=== PATIENT | female | born 1935 | race Hispanic/Latino ===

== ENCOUNTER 2018-10-28 18:25 | Inpatient (IN) | payer MEDICARE | END 2018-10-31 13:12 | disposition home or self-care (01) | LOC: EDH 18:25 → EDHIP 18:26 → 2DH 21:36 | DX: J44.1 Chronic obstructive pulmonary disease with (acute) exacerbation (principal); J18.1 Lobar pneumonia, unspecified organism ==

== ENCOUNTER 2018-11-06 12:54 | Observation (INO) | payer MEDICARE ==
[~2018-11-06] VITALS: Ht 149.9 cm; Wt 64.8 kg
[~2018-11-06 12:54] MED LIST: HYDR25TA PO; MEMA10TA11 PO; MVIT PO; NAPR500T6 PO; NIFE30TA91 PO
[2018-11-06] MEDS ORDERED: SODIUM CHLORIDE 0.9% 1000ML 1,000 ML IV ONE (13:26)
[2018-11-06] MEDS: 1/2 NORMAL SALINE 1,000 ML IV SCH (13:30)
[2018-11-06] MEDS ORDERED: ALBUTEROL SULFATE 0.083% 2.5 MG/3 ML INH IH PRN (13:30)
[2018-11-06] MEDS ORDERED: IPRATROPIUM/ALBUTEROL SULFATE 3 ML SOLUTION IH ONE (13:31)
[2018-11-06] MEDS: IPRATROPIUM/ALBUTEROL SULFATE 3 ML SOLUTION IH SCH ×2 (13:34→21:42)
[2018-11-06] MEDS ORDERED: 1/2 NORMAL SALINE 1,000 ML IV ONE (13:35)
[2018-11-06] MEDS ORDERED: FLUCONAZOLE 200 MG/NS 100 ML 100 ML IV SCH (14:00)
[2018-11-06 14:06] VITALS: BP 129/59
[2018-11-06 14:15] LABS: HEMATOCRIT 38.5 % (36-48); MEAN CORPUSCULAR HEMOGLOBIN 30.9 pg (27.0-33.0); MEAN CORPUSCULAR HGB CONC 33.3 g/dL (32.0-36.0); MEAN CORPUSCULAR VOLUME 92.9 fL (79-99); PLATELET COUNT (AUTO) 302 K/uL (130-400); RED BLOOD CELL COUNT(AUTO) 4.15 MIL/uL (4.00-5.50); RED CELL DISTRIBUTION WIDTH 14.2 % (11.0-15.5); WHITE BLOOD COUNT (AUTO) 16.6 K/uL (4.8-10.8)
[2018-11-06 14:35] LABS: BILIRUBIN,DIRECT 0.1 mg/dL (0.0-0.3); BILIRUBIN,TOTAL 0.3 mg/dL (0.2-1.0); CREATININE 1.6 mg/dL (0.5-1.5); POTASSIUM 4.1 mmol/L (3.5-5.1); TOTAL PROTEIN, SERUM 7.9 g/dL (6.0-8.3)
--- NOTE | 2018-11-06 15:00 | NUR ---
NEW ADMISSION FORM FAX TO DR LO OFFICE FOR GI CONSULT AND DR ROLLINS IN TO SEE PATIENT AND SAID NO ANTIBIOTICS AT THIS TIME .
[2018-11-06 16:00] VITALS: BP 137/62
[2018-11-06] MEDS: CLOTRIMAZOLE 10 MG TROCHE MM SCH ×3 (18:23→23:15)
[2018-11-06 19:15] VITALS: BP 133/66
[2018-11-06 23:45] VITALS: BP 129/62
[2018-11-07] VITALS (16 sets, daily range): BP systolic 113–155; BP diastolic 43–84
[2018-11-07] MEDS: 1/2 NORMAL SALINE 1,000 ML IV SCH (03:13)
[2018-11-07 05:22] LABS: MEAN CORPUSCULAR HEMOGLOBIN 31.4 pg (27.0-33.0); MEAN CORPUSCULAR HGB CONC 33.6 g/dL (32.0-36.0); MEAN CORPUSCULAR VOLUME 93.3 fL (79-99); PLATELET COUNT (AUTO) 263 K/uL (130-400); RED BLOOD CELL COUNT(AUTO) 3.97 MIL/uL (4.00-5.50); RED CELL DISTRIBUTION WIDTH 14.4 % (11.0-15.5); WHITE BLOOD COUNT (AUTO) 13.3 K/uL (4.8-10.8)
[2018-11-07 05:27] LABS: INR 0.94 (0.85-1.15); PARTIAL THROMBOPLASTIN TIME 23.6 SEC (26.3-35.5); PROTHROMBIN TIME 9.9 SEC (9.6-11.6)
[2018-11-07 05:42] LABS: ALBUMIN 3.5 g/dL (3.5-5.0); BILIRUBIN,DIRECT 0.1 mg/dL (0.0-0.3); BILIRUBIN,TOTAL 0.4 mg/dL (0.2-1.0); CREATININE 1.2 mg/dL (0.5-1.5); POTASSIUM 3.9 mmol/L (3.5-5.1); TOTAL PROTEIN, SERUM 7.1 g/dL (6.0-8.3)
[2018-11-07] MEDS: IPRATROPIUM/ALBUTEROL SULFATE 3 ML SOLUTION IH SCH (06:27)
--- NOTE | 2018-11-07 08:00 | NUR ---
AM SHIFT ASSESSMENT, PENDING EGD TODAY AFTER LUNCH AND OK TO HAVE BKFT THIS AM.
[2018-11-07] MEDS ORDERED: NIFEDIPINE ER 30 MG TAB PO SCH (09:00)
--- NOTE | 2018-11-07 10:43 | NUR ---
CHART CHECK. Pt IS AN 83 YEAR OLD FEMALE ADMITTED TO THIS FACILITY SECONDARY TO GLADIS ESOPHAGITIS, HYPERTENSION, COPD, STOMATITIS, IMPAIRED FASTING GLUCOSE. Pt HAS A PAST MEDICAL HISTORY SIGNIFICANT FOR COPD, HYPERTENSION, DYSLIPIDEMIA, HYPERGLYCEMIA, GLADIS, ANEMIA, CHRONIC KIDNEY DISEASE STAGE IV, HYPERLIPIDEMIA. Pt WITH COMPLAINS OF DYSPHAGIA DESCRIBED FOOD STOPPING MID CHEST. Pt CURRENTLY NPO SECONDARY TO SCHEDULED FOR EGD. DYSPHAGIA EVAL RECOMMENDED IF Pt CONTINUES TO HAVE DIFFICULTY SWALLOWING AND HAS BEEN CLEARED FOR P.O. BY GI. Addendum: 11/07/18 at 1052 by ZENAIDA LOUIE, SPT ST Amended: Links added.
--- NOTE | 2018-11-07 12:20 | NUR ---
TO GI LAB NOW.
[2018-11-07] MEDS ORDERED: PROPOFOL 10 MG/ML 20ML VIAL IV ONE ×2 (13:30)
--- NOTE | 2018-11-07 14:00 | NUR ---
RECEIVED REPORT FROM RR. PT. NOW BACK TO ROOM. AWAKE AND ASST. TO BR FOR A VOID. LIQUID DIET ORDERED.
--- NOTE | 2018-11-07 15:30 | NUR ---
DC ORDERS ENTERED BY DR. LORENZO.
[2018-11-07] MEDS ORDERED: PANT40TA25 PO (17:28)
--- NOTE | 2018-11-07 17:50 | NUR ---
DISCHARGED NOW USING TEACH BACK. RX. FOR PROTONIX 40MG. CALLED IN TO [facility] IN [place], FOLLOW UP APPT WITH DR. LORENZO AND DR. LO DONE. INST. TO FOLLOW CLEAR LIQ DIET THE REST OF TODAY AND START ON SOFT FOODS IN AM.
== END 2018-11-07 18:00 | disposition home or self-care (01) ==
LOC: EDH 12:54 → EDHIP 13:01 → 3CH 13:54
PROVIDERS: ADMIT Internal Medicine; ATTEND Internal Medicine
DX: K12.1 Other forms of stomatitis (principal); B37.0 Candidal stomatitis; B37.81 Candidal esophagitis; D64.9 Anemia, unspecified; E78.5 Hyperlipidemia, unspecified; I12.9 Hypertensive chronic kidney disease with stage 1 through stage 4 chronic kidney disease, or unspecified chronic kidney disease; N18.4 Chronic kidney disease, stage 4 (severe); J18.9 Pneumonia, unspecified organism; K21.0 Gastro-esophageal reflux disease with esophagitis; J44.0 Chronic obstructive pulmonary disease with (acute) lower respiratory infection; J44.1 Chronic obstructive pulmonary disease with (acute) exacerbation; K29.00 Acute gastritis without bleeding; K22.2 Esophageal obstruction; R13.14 Dysphagia, pharyngoesophageal phase; T38.0X5A Adverse effect of glucocorticoids and synthetic analogues, initial encounter; Z87.01 Personal history of pneumonia (recurrent); Y92.89 Other specified places as the place of occurrence of the external cause; Z79.899 Other long term (current) drug therapy
CPT/HCPCS: 36415 ×2; 43239; 80048 ×2; 80076 ×2; 85027 ×2; 85610; 85730; 86677; 94640 ×3; 94664; 96365; G0378 ×29; J1450; J2704 ×2; J7030

== ENCOUNTER 2018-11-12 13:16 | Emergency (ER) | payer MEDICARE ==
[~2018-11-12 13:16] MED LIST changes: +PANT40TA25 PO
[2018-11-12 14:03] LABS: BASOPHILS % (AUTO) 0.4 % (0.0-5.0); EOSINOPHILS % (AUTO) 0.3 % (0.0-8.0); HEMATOCRIT 38.6 % (36-48); LYMPHOCYTES % (AUTO) 19.1 % (21.0-51.0); MEAN CORPUSCULAR HEMOGLOBIN 30.9 pg (27.0-33.0); MEAN CORPUSCULAR HGB CONC 32.9 g/dL (32.0-36.0); MEAN CORPUSCULAR VOLUME 94.1 fL (79-99); MONOCYTES % (AUTO) 6.7 % (3.0-13.0); NEUTROPHILS % (AUTO) 73.5 % (40.0-77.0); NUCLEATED RED BLOOD CELLS 0.1 % (0.0-0.19); PLATELET COUNT (AUTO) 230 K/uL (130-400); RED BLOOD CELL COUNT(AUTO) 4.11 MIL/uL (4.00-5.50); RED CELL DISTRIBUTION WIDTH 14.6 % (11.0-15.5); WHITE BLOOD COUNT (AUTO) 13.1 K/uL (4.8-10.8)
[2018-11-12 14:11] LABS: APPEARANCE,URINE Clear (CLEAR); BILIRUBIN,URINE Negative (NEGATIVE); COLOR,URINE Yellow (YELLOW); GLUCOSE, URINE (UA) Negative (NEGATIVE); KETONES,URINE Trace mg/dL (NEGATIVE); LEUKOCYTE ESTERASE ,URINE Trace (NEGATIVE); NITRATE,URINE Negative (NEGATIVE); OCCULT BLOOD,URINE Negative (NEGATIVE); PH,URINE 6.5 (5.0-8.0); PROTEIN,URINE Trace mg/dL (NEGATIVE)
[2018-11-12 14:17] LABS: CREATININE 1.6 mg/dL (0.5-1.5); POTASSIUM 3.7 mmol/L (3.5-5.1)
[2018-11-12 14:21] LABS: ALBUMIN 3.9 g/dL (3.5-5.0); BILIRUBIN,TOTAL 0.5 mg/dL (0.2-1.0); INR 0.89 (0.85-1.15); PARTIAL THROMBOPLASTIN TIME 20.5 SEC (26.3-35.5); PROTHROMBIN TIME 9.4 SEC (9.6-11.6); TOTAL PROTEIN, SERUM 7.5 g/dL (6.0-8.3)
[2018-11-12 14:45] LABS: B-TYPE NATRIURETIC PEPTIDE 91 pg/mL (0-100)
[2018-11-12 14:46] LABS: BACTERIA,URINE Few /HPF (None Seen); HYALINE CASTS, URINE 0-1 /LPF (0-1 /LPF); RBC,URINE 0-1 /HPF (0-1); SQUAMOUS EPITHELIAL CELL,UR Few /HPF (0-2)
[2018-11-12] MEDS ORDERED: CEFTRIAXONE SODIUM 1 GM ONE (15:15)
[2018-11-12] MEDS ORDERED: SODIUM CHLORIDE 0.9% 50 ML IV ONE (15:17)
[2018-11-12] MEDS ORDERED: DOCUSATE SODIUM 100 MG CAP PO ONE (15:37)
[2018-11-12] MEDS ORDERED: HYOSCYAMINE SULFATE 0.125 MG TAB.SUBL SL ONE (15:37)
== END 2018-11-12 16:08 | disposition home or self-care (01) ==
LOC: EDH 13:16
DX: N39.0 Urinary tract infection, site not specified (principal); K59.00 Constipation, unspecified; I12.9 Hypertensive chronic kidney disease with stage 1 through stage 4 chronic kidney disease, or unspecified chronic kidney disease; N18.9 Chronic kidney disease, unspecified; J44.9 Chronic obstructive pulmonary disease, unspecified; E78.5 Hyperlipidemia, unspecified; Z90.49 Acquired absence of other specified parts of digestive tract
CPT/HCPCS: 36415; 71045; 74176; 80053; 81001; 82150; 82550; 83690; 83880; 84484; 85025; 85610; 85730; 87088; 93005; 96374; 99285; J0696

== ENCOUNTER 2020-10-05 13:09 | Observation (INO) | payer MEDICARE ==
[~2020-10-05] VITALS: Ht 154.9 cm; Wt 67.8 kg
[~2020-10-05 13:09] MED LIST changes: +NIFE-40 PO; -NIFE30TA91 PO; -PANT40TA25 PO; +PANT40TA55 PO
[2020-10-05 14:01] LABS: BASOPHILS % (AUTO) 0.1 % (0.0-5.0); HEMATOCRIT 39.2 % (36-48); LYMPHOCYTES % (AUTO) 8.6 % (21.0-51.0); MEAN CORPUSCULAR HEMOGLOBIN 29.1 pg (27.0-33.0); MEAN CORPUSCULAR HGB CONC 31.6 g/dL (32.0-36.0); MONOCYTES % (AUTO) 6.3 % (3.0-13.0); NEUTROPHILS % (AUTO) 84.1 % (40.0-77.0); PLATELET COUNT (AUTO) 286 K/uL (130-400); RED BLOOD CELL COUNT(AUTO) 4.26 MIL/uL (4.00-5.50); WHITE BLOOD COUNT (AUTO) 21.6 K/uL (4.8-10.8)
[2020-10-05 14:12] LABS: CARBON DIOXIDE 29 mmol/L (21-32); CHLORIDE 100 mmol/L (101-111); CREATININE 2.1 mg/dL (0.5-1.5); GLOMERULAR FILTR. RATE CALC 24 mL/min (>60); GLUCOSE,RANDOM 153 mg/dL (70-105); SODIUM SERUM 138 mmol/L (136-145); UREA NITROGEN, BLOOD 41 mg/dL (7-18)
[2020-10-05] MEDS ORDERED: ZOSYN 3.375GM+NS 50ML 50 ML IV ONE (14:14)
[2020-10-05 14:15] LABS: ALANINE AMINOTRANSFERASE 52 U/L (12-78); ALBUMIN 3.8 g/dL (3.5-5.0); AMYLASE 105 U/L (25-115); ASPARTATE AMINOTRANSFERASE 23 U/L (10-37); BILIRUBIN,TOTAL 0.2 mg/dL (0.2-1.0); LIPASE 206 U/L (114-286); PHOSPHORUS 3.2 mg/dL (2.5-4.9); TOTAL PROTEIN, SERUM 7.8 g/dL (6.0-8.3)
[2020-10-05] MEDS ORDERED: METRONIDAZOLE 500MG/100ML BAG 100 ML ONE (14:15)
[2020-10-05] MEDS ORDERED: 1/2 NORMAL SALINE 1,000 ML IV ONE (14:16)
[2020-10-05 14:26] LABS: BILIRUBIN,DIRECT < 0.1 mg/dL (0.0-0.3)
[2020-10-05 21:30] VITALS: BP 165/62
[2020-10-05] MEDS ORDERED: PHARMACY COMMUNICATION MISC SCH (22:00)
[2020-10-05 23:25] VITALS: BP 132/85
[2020-10-06] VITALS (7 sets, daily range): BP systolic 139–165; BP diastolic 59–65
[2020-10-06] MEDS: METRONIDAZOLE 500MG/100ML BAG 100 ML IVPB SCH ×4 (00:19→22:14)
[2020-10-06] MEDS: 1/2 NORMAL SALINE 1,000 ML IV SCH ×3 (00:19→18:44)
[2020-10-06] MEDS ORDERED: IPRA21SP NS (01:11)
[2020-10-06] MEDS ORDERED: HYDR-3421 PO (01:11)
[2020-10-06] MEDS ORDERED: ACET-2247 PO (01:11)
[2020-10-06] MEDS ORDERED: GABA-529 PO (01:11)
[2020-10-06] MEDS: ZOSYN 3.375GM+NS 50ML 50 ML IV SCH ×2 (03:21→15:51)
[2020-10-06 05:07] LABS: HEMATOCRIT 37.5 % (36-48); MEAN CORPUSCULAR HEMOGLOBIN 29.1 pg (27.0-33.0); MEAN CORPUSCULAR HGB CONC 31.5 g/dL (32.0-36.0); MEAN CORPUSCULAR VOLUME 92.4 fL (79-99); RED BLOOD CELL COUNT(AUTO) 4.06 MIL/uL (4.00-5.50); RED CELL DISTRIBUTION WIDTH 14.9 % (11.0-15.5); WHITE BLOOD COUNT (AUTO) 16.1 K/uL (4.8-10.8)
[2020-10-06 05:17] LABS: CREATININE 1.7 mg/dL (0.5-1.5); POTASSIUM 4.1 mmol/L (3.5-5.1)
[2020-10-06] MEDS: PANTOPRAZOLE 40 MG/VIAL IVP SCH (09:23)
[2020-10-06] MEDS: ENOXAPARIN SODIUM 30 MG/0.3 ML SQ SCH (09:23)
[2020-10-06] MEDS: BENZONATATE 100 MG CAPSULE PO PRN (21:03)
[2020-10-06] MEDS: CLONIDINE HCL 0.1 MG TABLET PO PRN (21:21)
[2020-10-07] VITALS (7 sets, daily range): BP systolic 144–206; BP diastolic 55–82
[2020-10-07] MEDS: ZOSYN 3.375GM+NS 50ML 50 ML IV SCH ×2 (03:05→15:36)
[2020-10-07] MEDS: 1/2 NORMAL SALINE 1,000 ML IV SCH ×2 (03:15→22:29)
[2020-10-07 05:22] LABS: BASOPHILS % (AUTO) 0.4 % (0.0-5.0); EOSINOPHILS % (AUTO) 2.8 % (0.0-8.0); HEMATOCRIT 36.7 % (36-48); LYMPHOCYTES % (AUTO) 26.7 % (21.0-51.0); MEAN CORPUSCULAR HEMOGLOBIN 29.6 pg (27.0-33.0); MEAN CORPUSCULAR HGB CONC 31.1 g/dL (32.0-36.0); MEAN CORPUSCULAR VOLUME 95.3 fL (79-99); NEUTROPHILS % (AUTO) 62.3 % (40.0-77.0); PLATELET COUNT (AUTO) 231 K/uL (130-400); RED BLOOD CELL COUNT(AUTO) 3.85 MIL/uL (4.00-5.50); RED CELL DISTRIBUTION WIDTH 14.9 % (11.0-15.5); WHITE BLOOD COUNT (AUTO) 10.6 K/uL (4.8-10.8)
[2020-10-07 05:50] LABS: ALBUMIN 3.1 g/dL (3.5-5.0); BILIRUBIN,TOTAL 0.4 mg/dL (0.2-1.0); CREATININE 1.5 mg/dL (0.5-1.5); POTASSIUM 4.3 mmol/L (3.5-5.1); TOTAL PROTEIN, SERUM 6.3 g/dL (6.0-8.3)
[2020-10-07] MEDS: BENZONATATE 100 MG CAPSULE PO PRN ×2 (05:55→11:04)
[2020-10-07] MEDS: METRONIDAZOLE 500MG/100ML BAG 100 ML IVPB SCH ×3 (05:55→22:26)
[2020-10-07] MEDS: PANTOPRAZOLE 40 MG/VIAL IVP SCH (10:55)
[2020-10-07] MEDS: ENOXAPARIN SODIUM 30 MG/0.3 ML SQ SCH (10:56)
[2020-10-07] MEDS: IPRATROPIUM/ALBUTEROL SULFATE 3 ML SOLUTION IH SCH ×2 (11:46→19:30)
[2020-10-07] MEDS ORDERED: ACETAMINOPHEN 325 MG TAB PO PRN (12:15)
[2020-10-07] MEDS ORDERED: HYDROXYZINE HCL 25 MG TABLET PO PRN (12:15)
[2020-10-07] MEDS: CLONIDINE HCL 0.1 MG TABLET PO PRN (12:42)
[2020-10-07] MEDS: IPRATROPIUM BROMIDE NASAL SCH (21:00)
[2020-10-07] MEDS ORDERED: NIFEDIPINE ER 30 MG TAB PO SCH (21:55)
[2020-10-07] MEDS: GABAPENTIN 100 MG CAPSULE PO SCH (22:34)
[2020-10-08] VITALS: BP 155/52
[2020-10-08] MEDS: IPRATROPIUM/ALBUTEROL SULFATE 3 ML SOLUTION IH SCH ×4 (00:14→18:55)
[2020-10-08] MEDS: ZOSYN 3.375GM+NS 50ML 50 ML IV SCH ×2 (03:25→16:38)
[2020-10-08 04:00] VITALS: BP 169/80
[2020-10-08 05:34] LABS: BASOPHILS % (AUTO) 0.5 % (0.0-5.0); EOSINOPHILS % (AUTO) 2.6 % (0.0-8.0); HEMATOCRIT 33.5 % (36-48); LYMPHOCYTES % (AUTO) 24.3 % (21.0-51.0); MEAN CORPUSCULAR HEMOGLOBIN 29.7 pg (27.0-33.0); MEAN CORPUSCULAR HGB CONC 31.3 g/dL (32.0-36.0); MEAN CORPUSCULAR VOLUME 94.6 fL (79-99); MONOCYTES % (AUTO) 10.1 % (3.0-13.0); NEUTROPHILS % (AUTO) 61.9 % (40.0-77.0); PLATELET COUNT (AUTO) 203 K/uL (130-400); RED BLOOD CELL COUNT(AUTO) 3.54 MIL/uL (4.00-5.50); RED CELL DISTRIBUTION WIDTH 14.6 % (11.0-15.5); WHITE BLOOD COUNT (AUTO) 8.5 K/uL (4.8-10.8)
[2020-10-08 06:00] LABS: ALBUMIN 2.8 g/dL (3.5-5.0); BILIRUBIN,TOTAL 0.3 mg/dL (0.2-1.0); CREATININE 1.4 mg/dL (0.5-1.5); POTASSIUM 3.8 mmol/L (3.5-5.1); TOTAL PROTEIN, SERUM 5.9 g/dL (6.0-8.3)
[2020-10-08] MEDS: METRONIDAZOLE 500MG/100ML BAG 100 ML IVPB SCH ×2 (06:00→13:40)
[2020-10-08] MEDS ORDERED: NIFEDIPINE ER 30 MG TAB PO SCH (07:30)
[2020-10-08] MEDS ORDERED: MEMANTINE HCL 5 MG TABLET PO SCH (09:00)
[2020-10-08] MEDS: IPRATROPIUM BROMIDE NASAL SCH (09:00)
[2020-10-08 09:18] VITALS: BP 147/57
[2020-10-08] MEDS: 1/2 NORMAL SALINE 1,000 ML IV SCH (10:01)
[2020-10-08] MEDS: GABAPENTIN 100 MG CAPSULE PO SCH (10:02)
[2020-10-08] MEDS: PANTOPRAZOLE 40 MG/VIAL IVP SCH (10:05)
[2020-10-08] MEDS: ENOXAPARIN SODIUM 30 MG/0.3 ML SQ SCH (10:07)
[2020-10-08 11:50] VITALS: BP 137/50
[2020-10-08] MEDS: BENZONATATE 100 MG CAPSULE PO PRN ×2 (16:38→19:57)
[2020-10-08 17:31] VITALS: BP 155/67
== END 2020-10-08 20:00 | disposition home or self-care (01) ==
LOC: EDH 13:09 → EDHIP 13:10 → 3DH 20:56
PROVIDERS: ADMIT Internal Medicine; ATTEND Internal Medicine
DX: E86.0 Dehydration (principal); R10.84 Generalized abdominal pain; I12.9 Hypertensive chronic kidney disease with stage 1 through stage 4 chronic kidney disease, or unspecified chronic kidney disease; N18.9 Chronic kidney disease, unspecified; D63.8 Anemia in other chronic diseases classified elsewhere; J44.9 Chronic obstructive pulmonary disease, unspecified; E78.5 Hyperlipidemia, unspecified; Z79.899 Other long term (current) drug therapy
CPT/HCPCS: 36415 ×4; 74176; 80048 ×2; 80053 ×2; 80076; 82150; 82948; 83690; 83735; 84100; 85025 ×3; 85027; 94640 ×6; 94664; 96361 ×3; 96365; 96366 ×3; 96367; 96368; 96372 ×3; 96375; 96376 ×2; 99284; C9113 ×4; G0378 ×77; J1650 ×3; J2543 ×7; J3490 ×10

== ENCOUNTER 2025-02-22 16:08 | Emergency (ER) | payer MEDICARE ==
[~2025-02-22] VITALS: Ht 142.2 cm; Wt 58.1 kg
[~2025-02-22 16:08] MED LIST changes: +AMLO-257 PO; +CETI10TA57 PO; +CLON1PAT14 TP; +CYAN-52 PO; +DICY20TA3 PO; +FLUT15.845 NS; +HYDR-3421 PO; -HYDR25TA PO; +LORA-997 PO; -MEMA10TA11 PO; +MEMA10TA21 PO; -MVIT PO; +NAPR-1194 PO; -NAPR500T6 PO; -NIFE-40 PO; +OMEP20CA12 PO; -PANT40TA55 PO; +VALS320T16 PO
[2025-02-22 16:09] VITALS: BP 176/64; PULSE 80; RESP 16; TEMP 98.5
[2025-02-22 19:15] LABS: CREATININE 1.4 mg/dL (0.5-1.0); GLOMERULAR FILTR. RATE CALC 36.0 mL/min (>90); GLUCOSE,RANDOM 156.0 mg/dL (70-105); SODIUM SERUM 140.0 mmol/L (136-145); UREA NITROGEN, BLOOD 26.0 mg/dL (7-18)
--- NOTE | 2025-02-22 19:16 | HMCIMG ---
EXAM: CR Chest, 1 View. CLINICAL HISTORY: BILATERAL PNEUMONIA, AECB, INFLUENZA A COMPARISON: Radiograph dated October 15, 2023 FINDINGS: LUNGS: The lungs show no infiltrate or other acute finding. Mild bibasilar atelectasis. PLEURAL SPACES: No evidence of pleural effusion or pneumothorax. MEDIASTINUM: Cardiac size and mediastinal contours within normal limits. BONES: No aggressive appearing osseous lesion seen. IMPRESSION: No acute cardiopulmonary pathology is evident. /[place]
[2025-02-22 19:18] LABS: NUCLEATED RED BLOOD CELLS 0.0 % (0.0-0.19); PLATELET COUNT (AUTO) 264 K/uL (130-400); RED BLOOD CELL COUNT(AUTO) 4.06 MIL/uL (4.00-5.50); RED CELL DISTRIBUTION WIDTH 14.5 % (11.0-15.5); WHITE BLOOD COUNT (AUTO) 11.5 K/uL (4.8-10.8)
[2025-02-22 19:19] LABS: ASPARTATE AMINOTRANSFERASE 20.0 U/L (10-37); TOTAL PROTEIN, SERUM 7.8 g/dL (6.0-8.3)
--- NOTE | 2025-02-22 19:36 | NUR ---
patient signed ama form. two daughters at bedside, all aware patient does not want to be admitted anymore. patient stated she is feeling better and will follow up with pmd in the am. patient and family aware of all risks associated with signing out ama. patient and family also made aware that she can return if she feels worse or changes her mind on the admission.
[2025-02-22 19:58] LABS: BAND NEUTROPHILS % (MANUAL) 1 % (0-2); LYMPHOCYTES % (MANUAL) 3 % (22-44); MAN.DIFF COMMENT-IMPRESSION MANUAL DIFFERENTIAL; MONOCYTES % (MANUAL) 3 % (2-9); PLATELET MORPHOLOGY COMMENT ADEQUATE; SEGMENTED NEUTROPHILS % 93 % (40-70); WBC MORPHOLOGY CONSISTENT W/DIFF
--- NOTE | 2025-02-23 03:34 | HP ---
HISTORY OF PRESENT ILLNESS: The patient came complaining of three-day history of productive cough, shortness of breath, generalized malaise, worsening progressively. She was seen in my office over the weekend and was diagnosed with COPD exacerbation and influenza, was given Tamiflu and amoxicillin with partial improvement; however, she continues to deteriorate, decided to come for reevaluation today. She denies any fever, chills, visual loss or consciousness. No chest pain or palpitations. There is a persistent productive cough with shortness of breath with minimal effort. PAST MEDICAL HISTORY: COPD, hypertension, dyslipidemia, Alzheimer's, gastritis, liver cirrhosis, chronic kidney disease. MEDICATIONS: Donepezil, terbinafine, memantine, valsartan, hydroxyzine, omeprazole, amlodipine, Tamiflu. ALLERGIES: None. PHYSICAL EXAMINATION: GENERAL: She is currently awake, alert, oriented in person, time and place. Minimal response. Short of breath with speaking. VITAL SIGNS: Blood pressure 138/70, pulse 78, respiratory rate 20, temperature 99.1. HEENT: Normocephalic, atraumatic. LUNGS: Decreased breath sounds bilaterally with inspiratory withdrawals both bases half the way up. Productive cough. HEART: S1 and S2 are distant. ABDOMEN: Soft and nontender. No masses. EXTREMITIES: No clubbing or cyanosis. No edema. SKIN: No rashes, petechiae or ecchymosis. Peak flow was 50, O2 saturation on room air was 96%. ASSESSMENT AND PLAN: * Bilateral lower lobe pneumonia. The patient will receive iv Rocephin, dexamethasone, DuoNeb. We will continue with Rocephin 1 g daily, Zithromax 500 IV daily, Solu-Medrol 80 mg IV every 12 hours, Tamiflu 30 mg p.o. b.i.d. for six more doses. * Chronic obstructive pulmonary disease exacerbation. Continue bronchodilators and steroids. * Influenza. Continue with Tamiflu 30 mg p.o. b.i.d. * Hypertension. Continue with her home medications. * Dyslipidemia. Continue with diet. * Chronic kidney disease. Continue to monitor not just doses accordingly. * Dementia, stable. * Followup in a.m. with labs. DOS: 02/22/2025 TID: [id number] RECEIPT: [id number] [facility]
[2025-02-25] MEDS ORDERED: DONE-51 PO (18:35)
[2025-02-25] MEDS ORDERED: OSEL30CA PO (18:35)
[2025-02-25] MEDS ORDERED: AMOX1TAB16 PO (18:35)
[2025-02-25] MEDS ORDERED: TERB250T89 PO (18:35)
== END 2025-02-22 19:34 | disposition left against medical advice (07) ==
LOC: EDH 16:08 → DIRECT 16:09 → UNDOADMIN 16:09 → UNDODISIN 19:34 → DIRECT 19:34
DX: J11.00 Influenza due to unidentified influenza virus with unspecified type of pneumonia (principal)
CPT/HCPCS: 36415; 71045; 80053; 80076; 85025; 99284; G0378